=== PATIENT | male | born 1955 | race Caucasian/White ===

== ENCOUNTER 2017-11-13 09:27 | Inpatient (IN) | payer MEDICARE ==
[2017-11-13] MEDS ORDERED: CEFTRIAXONE SODIUM 1 GM in 0.9 % SODIUM CHLORIDE 100ML 100 ML IVPB ONE (09:33)
[2017-11-13] MEDS ORDERED: AZITHROMYCIN 500 MG TABLET PO ONE (09:33)
[2017-11-13] MEDS ORDERED: METHYLPREDNISOLONE PF 125MG/VIAL IVP ONE (09:33)
[2017-11-13] MEDS ORDERED: IPRATROPIUM/ALBUTEROL (0.5MG/3MG) NEB INH ONE (09:33)
--- NOTE | 2017-11-13 09:37 | Emergency Department Record ---
History of Present Illness - General Chief Complaint: Shortness of breath Stated Complaint: BECCA Time Seen by Provider: 11/13/17 09:32 Source: Patient, Family Mode of Arrival: Ambulatory Limitations: No limitations - History of Present Illness Initial Comments: 62 yo male present with cough, fevers, and productive sputum. The onset was last Sunday. The symptoms started with a dry cough. Over the course of the days he has developed a productive cough with sputum that is like "banana pudding". No blood. He is a lifelong smoker. He denies chest pain or leg swelling. No history of CAD. He states Dr Goodrich is his PCP and treats him for HTN. On presentation he was 87-89% on room air. He was in the low 90's on 2 LNC. MD Complaint: Cough, Shortness of breath -: Week(s) (1) Severity: Mild Quality: Aching Consistency: Constant Improves With: Nothing Worsens With: Coughing Known History Of: COPD Context: Recent URI Associated Symptoms: Denies other symptoms, Cough - Related Data Home Medications Medication Instructions Recorded Confirmed Last Taken Amlodipine Besylate [Norvasc] 10 mg PO DAILY 11/13/17 11/13/17 Unknown Aspirin Chewable 81 mg PO DAILY 11/13/17 11/13/17 Unknown Atorvastatin Calcium 20 mg PO QHS 11/13/17 11/13/17 Unknown Carvedilol [Coreg] 3.125 mg PO BID 11/13/17 11/13/17 Unknown Glyburide 5 mg PO DAILY 11/13/17 11/13/17 Unknown Hydrochlorothiazide [Hctz] 25 mg PO BID 11/13/17 11/13/17 Unknown Insulin Glargine,Hum.rec.anlog 70 unit SQ DAILY 11/13/17 11/13/17 Unknown [Lantus] Lisinopril 20 mg PO BID 11/13/17 11/13/17 Unknown Metformin HCl 1,000 mg PO BID 11/13/17 11/13/17 Unknown Pioglitazone HCl 30 mg PO DAILY 11/13/17 11/13/17 Unknown Allergies Allergy/AdvReac Type Severity Reaction Status Date / Time No Known Drug Allergies Allergy Verified 11/13/17 09:33 Review of Systems Constitutional: Reports: Chills, Fever, Malaise Eyes: Denies: Eye discharge, Eye pain, Photophobia, Vision change ENT: Reports: Congestion. Denies: Dental pain, Throat pain Respiratory: Reports: Cough, Dyspnea, Wheezes Cardiovascular: Denies: Chest pain, Palpitations, Syncope Endocrine: Denies: Fatigue, Polydipsia, Polyuria Gastrointestinal: Denies: Abdominal pain, Diarrhea, Nausea, Vomiting Genitourinary: Denies: Dysuria, Frequency, Hematuria Musculoskeletal: Denies: Arthralgia, Back pain, Joint swelling, Myalgia, Neck pain Skin: Denies: Change in color Neurological: Denies: Numbness, Weakness Psychiatric: Denies: Anxiety Hematological/Lymphatic: Denies: Blood Clots, Easy bleeding, Easy bruising, Swollen glands Physical Exam - General General Appearance: Alert, Oriented x3, Cooperative, No acute distress Limitations: No limitations - Head Head exam: Normal inspection - Eye Eye exam: Normal appearance. negative: Conjunctival injection, Scleral icterus - ENT ENT exam: Normal exam, Mucous membranes moist Ear exam: Normal external inspection Nasal Exam: Normal inspection Mouth exam: Normal external inspection Teeth exam: Normal inspection Throat exam: Normal inspection. negative: Tonsillar erythema, Tonsillomegaly, Tonsillar exudate, R peritonsillar mass, L peritonsillar mass - Neck Neck exam: Normal inspection, Full ROM. negative: Lymphadenopathy, Tenderness - Respiratory Respiratory exam: Accessory muscle use, Decreased breath sounds, Prolonged expiratory, Rhonchi, Wheezes. negative: Normal lung sounds bilaterally, Respiratory distress - Cardiovascular Cardiovascular Exam: Regular rate, Normal rhythm, Normal heart sounds - GI/Abdominal GI/Abdominal exam: Soft. negative: Distended, Guarding, Rebound, Rigid, Tenderness - Rectal Rectal exam: Deferred - exam: Deferred - Extremities Extremities exam: Normal inspection, Full ROM, Normal capillary refill. negative: Pedal edema, Tenderness - Back Back exam: Reports: Normal inspection, Full ROM. Denies: CVA tenderness (R), CVA tenderness (L), Muscle spasm, Paraspinal tenderness, Rash noted, Tenderness , Vertebral tenderness - Neurological Neurological exam: Alert, Normal gait, Oriented X3 - Psychiatric Psychiatric exam: Normal affect, Normal mood - Skin Skin exam: Dry, Intact, Normal color, Warm Course - Reevaluation(s) Reevaluation #1: ekg sinus rate 99, intervals QTc 482, L axis, ST No acute changes. No old EKG. 11/13/17 09:54 11/13/17 10:45 The patient was recheck after the treatment He still has diffuse wheeze, rhonchi, on 2 LNC 92-93% with Hr 103 11/13/17 10:46 The CBC was reviewed. No acute changes The CMP without significant acute changes The Influenza were negative The Troponin was normal The BNP was 245 The CXR was read as COPD, bilateral patchy infiltrates consistent with pneumonitis 11/13/17 11:01 I discussed the case with Dr Worley of He will admit for COPD/Pneumonitis Medical Decision Making - Lab Data Result diagrams: 11/13/17 09:40 11/13/17 09:40 Disposition Disposition: Admit Clinical Impression: COPD exacerbation Dyspnea Qualifiers: Dyspnea type: dyspnea on exertion Qualified Code(s): R06.09 - Other forms of dyspnea Pneumonia Qualifiers: Pneumonia type: due to unspecified organism Laterality: bilateral Lung location : unspecified part of lung Qualified Code(s): J18.9 - Pneumonia, unspecified organism Disposition: Still a Patient at [facility] Decision to Admit: Admit from ER Decision to Admit Date: 11/13/17 Decision to Admit Time: 10:47 Condition: (1) Good Forms: Patient Portal Access Time of Disposition: 10:47 Quality - Quality Measures Quality Measures: N/A - Blood Pressure Screening Does Patient Have Any of the Following: Active Dx of HTN Blood Pressure Classification: Hypertensive Reading Systolic Measurement: 184 Diastolic Measurement: 103 Screening for High Blood Pressure: Patient Exclusion, Hx of HTN [[id number]]
[2017-11-13 09:51] LABS: BASO % 0.1 % (0-6); EOS % 1.2 % (0-6); GRAN % 76.9 % (47-80); HEMATOCRIT 43.2 % (42.0-52.0); LYMPH % 11.5 % (16-45); MEAN CELL VOLUME 89.3 fl (81-97); MEAN CORPUSCULAR HGB CONC 34.7 g/dl (32-36); MONO % 10.3 % (0-9); PLATELET COUNT 312 K/uL (130-400); RED BLOOD COUNT 4.84 M/uL (4.40-5.70); RED CELL DISTRIBUTION WIDTH 12.8 % (11.5-14.5)
[2017-11-13 10:21] LABS: INFLUENZA A NEGATIVE (NEGATIVE); INFLUENZA B NEGATIVE (NEGATIVE)
[2017-11-13 10:21] LABS: BLOOD UREA NITROGEN 13 mg/dL (8-23); CREATININE 0.9 mg/dL (0.7-1.2); EST GLOMERULAR FILTRATION RATE > 60 mL/min
[2017-11-13 10:24] LABS: GLUCOSE,RANDOM 281 mg/dL (74-109)
[2017-11-13 10:27] LABS: ALBUMIN 3.5 g/dL (4.0-5.0); ALKALINE PHOSPHATASE 83 U/L (40-129); ALT/SGPT 23 U/L (<41); AST/SGOT 18 U/L (10.0-50.0)
[2017-11-13] MEDS ORDERED: ALBUTEROL HFA 8 GM INHALER INH PRN (11:26)
[2017-11-13] MEDS ORDERED: NICOTINE 21 MG/24 HOUR PATCH TD SCH (11:30)
--- NOTE | 2017-11-13 11:43 | History & Physical ---
History of Present Illness - Date of Service Date of Service for History & Physical: 11/13/17 - History of Present Illness Admitting Diagnosis: Pneumonia; COPD exacerbation History of Present Illness: 62 year old male admitted for pneumonia, COPD exacerbation. Past medical history includes COPD, hyperlipidemia, hypertension, and insulin dependent diabetes mellitus. Patient is a current pack per day smoker, denies any alcohol use. Patient developed a cough, fever, and shortness of breath 1 week ago. The symptoms started with a dry cough and progressed to a productive cough today. Patient describes the sputum as "banana pudding" and denies blood. He is a lifelong smoker. He denies chest pain or leg swelling. Patient denies any home treatments tried and denies any current treatment for his COPD. Upon arrival to the ED, he was 87-89% on room air. He was in the low 90's on 2 LNC, and afebrile. An EKG was obtained which indicated sinus rhythm with no ST changes. Chest x-ray revealed bilateral patchy infiltrates and COPD. Initial WBC was within normal limits. Patient received a duoneb treatment, solumedrol loading dose, rocephin, and azithromycin. Influenza testing was negative. 11/13/17: Patient alert and oriented x 3. Remains short of breath with minimal exertion on 2L oxygen via NC. Patient denies chest pain at this time. Tachycardic with heartrate in the 100's at rest. Patient reports mild improvement in dyspnea after receiving Duoneb treatment. Continues to have productive cough of purulent, yellow sputum. Travel Screening - Travel/Exposure Within Last 30 Days Have you traveled within the last 30 days?: No Review of Systems Constitutional: Reports: Chills, Fever, Malaise Eyes: Denies: Eye discharge, Eye pain, Photophobia, Vision change ENT: Reports: Congestion. Denies: Dental pain, Throat pain Respiratory: Reports: Cough, Dyspnea, Wheezes Cardiovascular: Denies: Chest pain, Palpitations, Syncope Endocrine: Denies: Fatigue, Polydipsia, Polyuria Gastrointestinal: Denies: Abdominal pain, Diarrhea, Nausea, Vomiting Genitourinary: Denies: Dysuria, Frequency, Hematuria Musculoskeletal: Denies: Arthralgia, Back pain, Joint swelling, Myalgia, Neck pain Skin: Denies: Change in color Neurological: Denies: Numbness, Weakness Psychiatric: Denies: Anxiety Hematological/Lymphatic: Denies: Blood Clots, Easy bleeding, Easy bruising, Swollen glands Past Medical History - SOCIAL HISTORY Smoking Status: Current every day smoker Alcohol Use: None Drug Use: None - RESPIRATORY Hx Respiratory Disorders: Yes Hx COPD: Yes - CARDIOVASCULAR Hx Cardio Disorders: Yes Hx CHF: Yes Hx Hypertension: Yes - NEURO Hx Neuro Disorders: Yes Hx TIA: Yes - GI Hx GI Disorders: No - Hx Genitourinary Disorders: No - ENDOCRINE Hx Endocrine Disorders: Yes Hx Diabetes: Yes - MUSCULOSKELETAL Hx Musculoskeletal Disorders: No - PSYCH Hx Psych Problems: No - HEMATOLOGY/ONCOLOGY Hx Hematology/Oncology Disorders: No Family Medical History Any Significant Family History?: No H&P Meds/Allergies - Allergies Allergies: Allergies Allergy/AdvReac Type Severity Reaction Status Date / Time No Known Drug Allergies Allergy Verified 11/13/17 09:33 - Home Medications Home Medications Medication Instructions Recorded Confirmed Last Taken Amlodipine Besylate [Norvasc] 10 mg PO DAILY 11/13/17 11/13/17 Unknown Aspirin Chewable 81 mg PO DAILY 11/13/17 11/13/17 Unknown Atorvastatin Calcium 20 mg PO QHS 11/13/17 11/13/17 Unknown Carvedilol [Coreg] 3.125 mg PO BID 11/13/17 11/13/17 Unknown Glyburide 5 mg PO DAILY 11/13/17 11/13/17 Unknown Hydrochlorothiazide [Hctz] 25 mg PO BID 11/13/17 11/13/17 Unknown Insulin Glargine,Hum.rec.anlog 70 unit SQ DAILY 11/13/17 11/13/17 Unknown [Lantus] Lisinopril 20 mg PO BID 11/13/17 11/13/17 Unknown Metformin HCl 1,000 mg PO BID 11/13/17 11/13/17 Unknown Pioglitazone HCl 30 mg PO DAILY 11/13/17 11/13/17 Unknown - Active Medications Active Medications: Current Medications Albuterol Sulfate (Ventolin Hfa) 1 puff INH RESP.Q4H PRN PRN Reason: Wheezing Albuterol/Ipratropium (Duoneb) 3 ml INH RESP.Q6H WILL Azithromycin (Zithromax) 500 mg PO DAILY WILL Ceftriaxone Sodium 1 gm/ (Sodium Chloride) 100 mls @ 200 mls/hr IVPB Q24H WILL Stop: 11/18/17 11:31 Insulin Detemir (Levemir Flextouch) 30 unit SQ QHS [facility] Nicotine (Nicotine 21mg) 1 patch TD DAILY [facility] Pantoprazole Sodium (Protonix) 40 mg PO DAILYAC [facility] Physical Exam - Vital Signs Vital Signs: Vital Signs - Last 24 Hrs Temp Pulse Pulse Resp BP BP Pulse Ox 11/13/17 10:27 98 H 22 169/88 93 L 11/13/17 09:38 99 H 21 93 L 11/13/17 09:30 98.0 F 102 H 22 184/103 91 L - General General Appearance: Alert, Oriented x3, Cooperative, No acute distress Limitations: No limitations - Head Head exam: Normal inspection - Eye Eye exam: Normal appearance. negative: Conjunctival injection, Scleral icterus - ENT ENT exam: Normal exam, Mucous membranes moist Ear exam: Normal external inspection Nasal Exam: Normal inspection Mouth exam: Normal external inspection Teeth exam: Normal inspection Throat exam: Normal inspection. negative: Tonsillar erythema, Tonsillomegaly, Tonsillar exudate, R peritonsillar mass, L peritonsillar mass - Neck Neck exam: Normal inspection, Full ROM. negative: Lymphadenopathy, Tenderness - Respiratory Respiratory exam: Accessory muscle use, Decreased breath sounds, Prolonged expiratory, Rhonchi (bilateral), Wheezes. negative: Normal lung sounds bilaterally, Respiratory distress - Cardiovascular Cardiovascular Exam: Regular rate, Normal rhythm, Normal heart sounds - GI/Abdominal GI/Abdominal exam: Soft. negative: Distended, Guarding, Rebound, Rigid, Tenderness - Rectal Rectal exam: Deferred - exam: Deferred - Extremities Extremities exam: Normal inspection, Full ROM. negative: Pedal edema, Tenderness - Back Back exam: Reports: Normal inspection, Full ROM. Denies: CVA tenderness (R), CVA tenderness (L), Muscle spasm, Paraspinal tenderness, Rash noted, Tenderness , Vertebral tenderness - Neurological Neurological exam: Alert, Normal gait, Oriented X3 - Psychiatric Psychiatric exam: Normal affect, Normal mood - Skin Skin exam: Dry, Intact, Normal color, Warm Results - Labs Result Diagrams: 11/13/17 09:40 11/13/17 09:40 Labs Last 24 Hours: Laboratory Results - last 24 hr 11/13/17 11/13/17 11/13/17 09:40 09:40 10:01 WBC 8.0 RBC 4.84 Hgb 15.0 Hct 43.2 MCV 89.3 MCH 31.0 MCHC 34.7 RDW 12.8 Plt Count 312 MPV 10.0 Gran % 76.9 Lymphocytes % 11.5 L Monocytes % 10.3 H Eosinophils % 1.2 Basophils % 0.1 Sodium 133 L Potassium 3.4 Chloride 90 L Carbon Dioxide 28.0 Anion Gap 15.0 BUN 13 Creatinine 0.9 Estimated GFR > 60 Random Glucose 281 H Calcium 9.1 Total Bilirubin 0.60 AST 18 ALT 23 Alkaline Phosphatase 83 Troponin T < 0.010 NT-Pro-B Natriuret Pep 242.50 H Total Protein 7.0 Albumin 3.5 L Globulin 3.5 Albumin/Globulin Ratio 1.0 L Influenza Type A Ag Negative Influenza Type B Ag Negative VTE H&P Assessment - Risk for VTE Risk for VTE: Yes Risk Level: Moderate Risk Assessment Date: 11/13/17 Risk Assessment Time: 10:45 VTE Orders Placed or Will Be Placed: Yes Plan - Inpatient Certification Inpatient Certification: 11/13/17 12:23 Admit to inpatient care: Based on my medical assessment, after consideration of patient's risk factors (age, co-morbidities and patient presenting symptoms and acuity), I expect that this patient will remain in the hospital greater than or equal to two midnights and that the services needed warrant inpatient care because: Patient Risk Factors: [COPD, Pneumonia, DM] Estimated length of stay: [48-72 hrs] The patient may reasonably be expected to be discharged or transferred to a hospital within 96 hours after admission to [facility]. Post hospital care (if known): [repeat chest x-ray, follow-up with PCP] I certify that my determination is in accordance with my understanding of Medicare requirements for reasonable and necessary inpatient services. - Detailed Diagnosis and Plan (1) Dyspnea Current Visit: Yes Status: Acute Qualifiers: Dyspnea type: dyspnea on exertion Qualified Code(s): R06.09 - Other forms of dyspnea Base Code: R06.00 - DYSPNEA, UNSPECIFIED Comment: 11/13/17: Patient remains short of breath with minimal exertion. Pulse ox 90-93% on 2L oxygen via NC. - Will continue duoneb and albuterol treatments - Solumedrol 60mg IVP qd - Continue to monitor and attempt weaning down oxygen as tolerated (2) Pneumonia Current Visit: Yes Status: Acute Qualifiers: Pneumonia type: due to unspecified organism Laterality: bilateral Lung location: unspecified part of lung Qualified Code(s): J18.9 - Pneumonia, unspecified organism Base Code: J18.9 - PNEUMONIA, UNSPECIFIED ORGANISM Comment: 11/13/17: Chest x- ray obtained indicates bilateral patchy infiltrates. Patient reports being febrile several times over the past week, rhonchi heard bilaterally on auscultation, decreased room air pulse ox. - Continue Rocephine 1gm IV qd - Continue Azithromycin 500mg PO qd - Continue albuterol and duoneb treatments - Continue solumedrol 60mg IVP qd (3) COPD exacerbation Current Visit: Yes Status: Acute Base Code: J44.1 - CHRONIC OBSTRUCTIVE PULMONARY DISEASE W (ACUTE) EXACERBATION Comment: 11/13/17: Patient is a lifelong 1 ppd smoker. Decreased room air pulse ox of 85-87%. Patient reports of dyspnea and cough. - Continue oxygen therapy per NC as needed to keep oxygen saturation above 92% - Continue albuterol and duoneb treatments (4) Nicotine dependence Current Visit: Yes Status: Acute Base Code: F17.200 - NICOTINE DEPENDENCE, UNSPECIFIED, UNCOMPLICATED Comment: 11/13/17: Patient is a current lifelong 1ppd smoker - Nicotine patch ordered (5) Diabetes Current Visit: Yes Status: Acute Base Code: E11.9 - TYPE 2 DIABETES MELLITUS WITHOUT COMPLICATIONS Comment: 11/13/17: Patient states he is an insulin dependent diabetic which is managed by Dr. Goodrich. Patient reports elevated home glucose readings over the past week - HgA1C ordered - Continue accuchecks AC, HS - Sliding scale insulin coverage ordered - Continue home dosing of Lantus (6) VTE (venous thromboembolism) Current Visit: Yes Status: Acute Base Code: I82.90 - ACUTE EMBOLISM AND THROMBOSIS OF UNSPECIFIED VEIN Comment: 11/13/17: Patient has moderate VTE risk due to age, pneumonia, and COPD. - Will order Lovenox 40mg SQ daily (7) Full code status Current Visit: Yes Status: Acute Base Code: Z78.9 - OTHER SPECIFIED HEALTH STATUS Comment: 11/13/17: Patient is a full code this admission
[2017-11-13] MEDS ORDERED: ALBUTEROL SULFATE (0.083%) 2.5 MG/3 ML NEB INH ONE (11:54)
[2017-11-13] MEDS: IPRATROPIUM/ALBUTEROL (0.5MG/3MG) NEB INH SCH ×5 (12:00→21:05)
[2017-11-13] MEDS ORDERED: PATIENT OWN MED: MC SCH (12:00)
[2017-11-13] MEDS ORDERED: ALBUTEROL SULFATE (0.083%) 2.5 MG/3 ML NEB INH PRN ×2 (13:28→16:57)
[2017-11-13] MEDS ORDERED: CEFTRIAXONE SODIUM 1 GM in 0.9 % SODIUM CHLORIDE 100ML 100 ML IVPB SCH (16:57)
[2017-11-13] MEDS ORDERED: ACETAMINOPHEN 325 MG TAB PO PRN (16:57)
[2017-11-13] MEDS ORDERED: IPRATROPIUM/ALBUTEROL (0.5MG/3MG) NEB INH SCH (17:00)
[2017-11-13] MEDS: NOVOLOG FLEXPEN (INSULIN ASPART) 100 UNITS/ML SQ SCH ×3 (17:48→21:05)
[2017-11-13] MEDS: HYDROCHLOROTHIAZIDE 25 MG TABLET PO SCH (21:50)
[2017-11-13] MEDS: METFORMIN 500 MG TABLET PO SCH (21:51)
[2017-11-13] MEDS: LISINOPRIL 20 MG TABLET PO SCH (21:51)
[2017-11-13] MEDS: CARVEDILOL 3.125 MG TABLET PO SCH (21:51)
[2017-11-13] MEDS ORDERED: SODIUM CHLORIDE 0.9% 500 ML IV ONE (21:59)
[2017-11-13] MEDS ORDERED: Non-Formulary MISC (Metformin Hcl [Metformin Hcl] 1,000 MG) PO SCH (22:00)
[2017-11-13] MEDS ORDERED: LISINOPRIL 20 MG TABLET PO SCH (22:00)
[2017-11-13] MEDS ORDERED: CARVEDILOL 3.125 MG TABLET PO SCH (22:00)
[2017-11-13] MEDS ORDERED: ATORVASTATIN 20 MG TABLET PO SCH ×2 (22:00)
[2017-11-13] MEDS ORDERED: LEVEMIR FLEXTOUCH 100 UNIT/ML INSULIN PEN SQ SCH (22:00)
[2017-11-13] MEDS ORDERED: PIOGLITAZONE HCL 15 MG TABLET PO SCH (22:00)
[2017-11-14] MEDS: IPRATROPIUM/ALBUTEROL (0.5MG/3MG) NEB INH SCH ×2 (01:15→06:09)
[2017-11-14 06:47] LABS: GRAN % 79.5 % (47-80); HEMATOCRIT 40.8 % (42.0-52.0); HEMOGLOBIN 14.2 gm/dl (14.0-18.0); LYMPH % 10.6 % (16-45); MEAN CELL VOLUME 88.9 fl (81-97); MEAN CORPUSCULAR HEMOGLOBIN 30.9 pg (27-33); MEAN CORPUSCULAR HGB CONC 34.8 g/dl (32-36); MEAN PLATELET VOLUME 10.2 fl (7.4-10.4); MONO % 9.9 % (0-9); PLATELET COUNT 394 K/uL (130-400); RED BLOOD COUNT 4.59 M/uL (4.40-5.70); RED CELL DISTRIBUTION WIDTH 12.6 % (11.5-14.5); WHITE BLOOD COUNT W/O DIFF 10.3 K/uL (4.2-12.2)
[2017-11-14 06:56] LABS: BLOOD UREA NITROGEN 19 mg/dL (8-23); EST GLOMERULAR FILTRATION RATE > 60 mL/min; GLUCOSE,RANDOM 320 mg/dL (74-109)
[2017-11-14] MEDS ORDERED: GLIPIZIDE 5 MG TABLET PO SCH ×2 (07:00→10:00)
[2017-11-14] MEDS ORDERED: PANTOPRAZOLE SODIUM 40 MG TABLET PO SCH (07:00)
--- NOTE | 2017-11-14 07:24 | RADIOLOGY REPORT ---
EXAM: CHEST, TWO VIEWS HISTORY: CHEST PAIN. TECHNIQUE: Frontal and lateral views of the chest were obtained. Comparison: None. FINDINGS: The heart size is normal. Atheromatous change of the thoracic aorta. Osteopenia. COPD. Mixed interstitial interspace opacities bilaterally. Multiple old rib fractures on the left. No pneumothorax. IMPRESSION: COPD WITH MIXED INTERSTITIAL INTERSPACE OPACITIES BILATERALLY SUGGESTING PNEUMONITIS. FOLLOW-UP RECOMMENDED. JOB NUMBER: [id number] MTDD
[2017-11-14] MEDS: NOVOLOG FLEXPEN (INSULIN ASPART) 100 UNITS/ML SQ SCH ×2 (08:10→12:25)
[2017-11-14] MEDS ORDERED: ALBUTEROL HFA 8 GM INHALER INH PRN (09:23)
[2017-11-14] MEDS ORDERED: CEFDINIR 300 MG CAPSULE PO ONE (09:30)
[2017-11-14] MEDS ORDERED: PREDNISONE 20 MG TAB PO SCH (09:30)
--- NOTE | 2017-11-14 09:30 | Discharge Summary ---
Providers Discharge Summary Date: 11/14/17 Date of admission: 11/13/17 12:09 Attending physician: SLOANE NELSON Primary care physician: JOE GOODRICH M.D. Physical Exam - Vital Signs Vital Signs: Vital Signs - Last 24 Hrs Temp Pulse Pulse Resp BP BP BP 11/14/17 09:13 99.3 F 92 H 18 135/82 11/14/17 07:35 98.0 F 91 H 18 149/83 11/14/17 07:30 18 11/14/17 06:09 98 H 16 11/14/17 01:15 96 H 16 11/14/17 01:00 97.6 F 93 H 18 156/92 11/13/17 21:53 99.0 F 104 H 16 135/76 11/13/17 21:05 103 H 16 11/13/17 21:00 104 H 16 11/13/17 16:33 104 H 14 11/13/17 15:42 105 H 20 11/13/17 12:27 101 H 20 164/89 11/13/17 12:00 100 H 15 11/13/17 10:27 98 H 22 169/88 11/13/17 09:38 99 H 21 11/13/17 09:30 98.0 F 102 H 22 184/103 Pulse Ox 11/14/17 09:13 94 L 11/14/17 07:35 91 L 11/14/17 07:30 11/14/17 06:09 11/14/17 01:15 93 L 11/14/17 01:00 94 L 11/13/17 21:53 90 L 11/13/17 21:05 92 L 11/13/17 21:00 11/13/17 16:33 96 11/13/17 15:42 11/13/17 12:27 92 L 11/13/17 12:00 92 L 11/13/17 10:27 93 L 11/13/17 09:38 93 L 11/13/17 09:30 91 L - General General Appearance: Alert, Oriented x3, Cooperative, No acute distress Limitations: No limitations - Head Head exam: Normal inspection - Eye Eye exam: Normal appearance. negative: Conjunctival injection, Scleral icterus - ENT ENT exam: Normal exam, Mucous membranes moist Ear exam: Normal external inspection Nasal Exam: Normal inspection Mouth exam: Normal external inspection Teeth exam: Normal inspection Throat exam: Normal inspection. negative: Tonsillar erythema, Tonsillomegaly, Tonsillar exudate, R peritonsillar mass, L peritonsillar mass - Neck Neck exam: Normal inspection, Full ROM. negative: Lymphadenopathy, Tenderness - Respiratory Respiratory exam: Decreased breath sounds, Prolonged expiratory, Rhonchi ( bilateral). negative: Normal lung sounds bilaterally, Accessory muscle use, Respiratory distress, Wheezes - Cardiovascular Cardiovascular Exam: Regular rate, Normal rhythm, Normal heart sounds - GI/Abdominal GI/Abdominal exam: Soft. negative: Distended, Guarding, Rebound, Rigid, Tenderness - Rectal Rectal exam: Deferred - exam: Deferred - Extremities Extremities exam: Normal inspection, Full ROM. negative: Pedal edema, Tenderness - Back Back exam: Reports: Normal inspection, Full ROM. Denies: CVA tenderness (R), CVA tenderness (L), Muscle spasm, Paraspinal tenderness, Rash noted, Tenderness , Vertebral tenderness - Neurological Neurological exam: Alert, Normal gait, Oriented X3 - Psychiatric Psychiatric exam: Normal affect, Normal mood - Skin Skin exam: Dry, Intact, Normal color, Warm Hospitalization - Hospitalization Admission Diagnosis: copd, pneumonia - Problem List/Discharge Diagnosis (1) Dyspnea Current Visit: Yes Status: Acute Discharge Diagnosis: Dyspnea type: dyspnea on exertion Qualified Code(s): R06.09 - Other forms of dyspnea Base Code: R06.00 - DYSPNEA, UNSPECIFIED Comment: 11/14/17: Patient denies shortness of breath at rest or with minimal exertion. Room air pulse ox 90-93%. - Patient to start albuterol and breo inhaler use - Prednisone 40mg qd PO (2) Pneumonia Current Visit: Yes Status: Acute Discharge Diagnosis: Pneumonia type: due to unspecified organism Laterality: bilateral Lung location: unspecified part of lung Qualified Code(s): J18.9 - Pneumonia, unspecified organism Base Code: J18.9 - PNEUMONIA, UNSPECIFIED ORGANISM Comment: 11/14/17: Chest x- ray obtained indicates bilateral patchy infiltrates. Patient reports decreased work of breathing, overall feelings of malaise have improved. Continues to have rhonchi in bases bilaterally. - Continue Azithromycin 500mg PO qd - Start Ceftinir 300mg PO BID - Will order outpatient chest x-ray after discharge in 1 week (3) COPD exacerbation Current Visit: Yes Status: Acute Base Code: J44.1 - CHRONIC OBSTRUCTIVE PULMONARY DISEASE W (ACUTE) EXACERBATION Comment: 11/14/17: Patient is a lifelong 1 ppd smoker. Room air pulse ox today 93%. Patient reports continued dry cough. - Albuterol and Breo inhalers ordered for home use - Will consider ordering PFTs after discharge (4) Nicotine dependence Current Visit: Yes Status: Acute Base Code: F17.200 - NICOTINE DEPENDENCE, UNSPECIFIED, UNCOMPLICATED Comment: 11/14/17: Patient is a current lifelong 1ppd smoker - Nicotine patch ordered - Discussed need for patient to stop smoking upon discharge (5) Diabetes Current Visit: Yes Status: Acute Base Code: E11.9 - TYPE 2 DIABETES MELLITUS WITHOUT COMPLICATIONS Comment: 11/14/17: Patient states he is an insulin dependent diabetic which is managed by Dr. Goodrich. - HgA1C 7.3 - Continue accuchecks AC, HS - Sliding scale insulin coverage ordered - Continue home dosing of Lantus - Discussed with patient increasing HS dose of Lantus to 35 units while taking prednisone. (6) VTE (venous thromboembolism) Current Visit: Yes Status: Acute Base Code: I82.90 - ACUTE EMBOLISM AND THROMBOSIS OF UNSPECIFIED VEIN Comment: 11/14/17: Patient has moderate VTE risk due to age, pneumonia, and COPD. - Will order Lovenox 40mg SQ daily (7) Full code status Current Visit: Yes Status: Acute Base Code: Z78.9 - OTHER SPECIFIED HEALTH STATUS Comment: 11/14/17: Patient is a full code this admission - Hospitalization Course Procedures: Imaging and X-Rays 11/13/17 09:33 CHEST 2 VIEWS [RAD] Stat Cardiology Procedures 11/13/17 09:33 Hog Raiser NOW EKG NOW 11/13/17 16:57 Hog Raiser .Continuous Abnormal Labs: Abnormal Lab Results 11/13/17 11/13/17 11/13/17 Range/Units 09:40 09:40 11:26 Hct (42.0-52.0) % Lymphocytes % 11.5 L (16-45) % Monocytes % 10.3 H (0-9) % Sodium 133 L (136-145) mmol/L Chloride 90 L (98-107) mmol/L Anion Gap (7-16) POC Glucose (70-110) mg/dL Random Glucose 281 H (74-109) mg/dL Hemoglobin A1c 7.30 H (4.0-6.00) % NT-Pro-B Natriuret Pep 242.50 H (<125) pg/mL Albumin 3.5 L (4.0-5.0) g/dL Albumin/Globulin Ratio 1.0 L (1.1-1.8) 11/13/17 11/13/17 11/13/17 Range/Units 18:02 20:30 20:38 Hct (42.0-52.0) % Lymphocytes % (16-45) % Monocytes % (0-9) % Sodium (136-145) mmol/L Chloride (98-107) mmol/L Anion Gap (7-16) POC Glucose 377 H 471 H* (70-110) mg/dL Random Glucose 504 H* (74-109) mg/dL Hemoglobin A1c (4.0-6.00) % NT-Pro-B Natriuret Pep (<125) pg/mL Albumin (4.0-5.0) g/dL Albumin/Globulin Ratio (1.1-1.8) 11/13/17 11/13/17 11/14/17 Range/Units 22:00 23:08 01:21 Hct (42.0-52.0) % Lymphocytes % (16-45) % Monocytes % (0-9) % Sodium (136-145) mmol/L Chloride (98-107) mmol/L Anion Gap (7-16) POC Glucose 464 H* 409 H 316 H (70-110) mg/dL Random Glucose (74-109) mg/dL Hemoglobin A1c (4.0-6.00) % NT-Pro-B Natriuret Pep (<125) pg/mL Albumin (4.0-5.0) g/dL Albumin/Globulin Ratio (1.1-1.8) 11/14/17 11/14/17 11/14/17 Range/Units 01:21 06:16 06:16 Hct 40.8 L (42.0-52.0) % Lymphocytes % 10.6 L (16-45) % Monocytes % 9.9 H (0-9) % Sodium 135 L (136-145) mmol/L Chloride 93 L (98-107) mmol/L Anion Gap 17.0 H (7-16) POC Glucose 316 H (70-110) mg/dL Random Glucose 320 H (74-109) mg/dL Hemoglobin A1c (4.0-6.00) % NT-Pro-B Natriuret Pep (<125) pg/mL Albumin (4.0-5.0) g/dL Albumin/Globulin Ratio (1.1-1.8) 11/14/17 Range/Units 06:16 Hct (42.0-52.0) % Lymphocytes % (16-45) % Monocytes % (0-9) % Sodium (136-145) mmol/L Chloride (98-107) mmol/L Anion Gap (7-16) POC Glucose (70-110) mg/dL Random Glucose (74-109) mg/dL Hemoglobin A1c 7.60 H (4.0-6.00) % NT-Pro-B Natriuret Pep (<125) pg/mL Albumin (4.0-5.0) g/dL Albumin/Globulin Ratio (1.1-1.8) Condition at Discharge: (1) Good VTE Discharge VTE Reason For No Overlap Therapy: Not Indicated Discharge Medications - Discharge Medications Prescriptions: Azithromycin [Zithromax] 500 mg PO DAILY #3 tab Cefdinir 300 mg PO BID #6 capsule Prednisone [Prednisone 20Mg] 40 mg PO DAILYWM #3 tab Home Medications: Ambulatory Orders Amlodipine Besylate [Norvasc] 10 mg PO DAILY 11/13/17 [Last Taken Unknown] Aspirin [Aspirin EC] 325 mg PO DAILY 11/13/17 [Last Taken Unknown] Atorvastatin Calcium 20 mg PO QHS 11/13/17 [Last Taken Unknown] Carvedilol [Coreg] 3.125 mg PO BID 11/13/17 [Last Taken Unknown] Glyburide 5 mg PO DAILY 11/13/17 [Last Taken Unknown] Hydrochlorothiazide [Hctz] 50 mg PO DAILY 11/13/17 [Last Taken Unknown] Insulin Glargine,Hum.rec.anlog [Lantus] 30 unit SQ QHS 11/13/17 [Last Taken Unknown] Lisinopril 20 mg PO BID 11/13/17 [Last Taken Unknown] Metformin HCl 1,000 mg PO BID 11/13/17 [Last Taken Unknown] Pioglitazone HCl 30 mg PO QHS 11/13/17 [Last Taken Unknown] Albuterol Sulfate [Ventolin Hfa] 1 puff INH RESP.Q4H PRN #0 inhaler 11/14/17 [ Last Taken Unknown] Aspirin Chewable 81 mg PO DAILY tab.chew 11/14/17 [Last Taken Unknown] Azithromycin [Zithromax] 500 mg PO DAILY #3 tab 11/14/17 [Last Taken Unknown] Cefdinir 300 mg PO BID #6 capsule 11/14/17 [Last Taken Unknown] Fluticasone/Vilanterol 100/25 [Breo Ellipta 100-25 Mcg INH] 1 puff INH RESP.DAILY #0 inhaler 11/14/17 [Last Taken Unknown] Glipizide [Glucotrol] 10 mg PO DAILY tablet 11/14/17 [Last Taken Unknown] Insulin Detemir [Levemir Flextouch] 30 unit SQ QHS syringe 11/14/17 [Last Taken Unknown] Metformin HCl [Glucophage Ir] 1,000 mg PO BID tablet 11/14/17 [Last Taken Unknown] Prednisone [Prednisone 20Mg] 40 mg PO DAILYWM #3 tab 11/14/17 [Last Taken Unknown] Discharge Plan - Discharge Instructions Activity at Discharge: Increase Activity as Tolerated Diet at Discharge: Diabetic Diet Additional Instructions: Take Prednisone once per day for 3 days. Take Zithromax once per day for 3 days. Take Cefdinir twice per day for 3 days. Use the Breo inhaler once every morning. Use the Albuterol inhaler only as needed for wheezing or shortness of breath. Return in 1 week with Stacia Jo NP in [facility], get chest x-ray prior to appointment. Return to ED for increased shortness of breath, increased work of breathing, fever, or worsening of symptoms. Quality Measures - Quality Measures Quality Measures: Documentation of Current Medications in Medical Record, Screening for High Blood Pressure and F/U Documented - Current Medications Quality Measure: Measure #130: Documentation of Current Medications Documentation of Current Medications: <Current Medications Documented/Reviewed> [[id number]] - Blood Pressure Screening Quality Measure: Screening for High Blood Pressure and Follow-Up Documented Does Patient Have Any of the Following: Active Dx of HTN Blood Pressure Classification: Hypertensive Reading Systolic Measurement: 184 Diastolic Measurement: 103 Screening for High Blood Pressure: Patient Exclusion, Hx of HTN [G9744] - Elder Abuse Suspicion Index EASI Reference Information: Dominique ARIAS, Conrad C, Ayo D, Tonio Huntley.Development and validation of a tool to assist physicians identification of elder abuse: The Elder Abuse Suspicion Index (EASI ). Journal of Elder Abuse and Neglect, 2008; 20 (3): 276-300.
[2017-11-14] MEDS: METFORMIN 500 MG TABLET PO SCH (09:33)
[2017-11-14] MEDS: CARVEDILOL 3.125 MG TABLET PO SCH (09:33)
[2017-11-14] MEDS: HYDROCHLOROTHIAZIDE 25 MG TABLET PO SCH (09:35)
[2017-11-14] MEDS: LISINOPRIL 20 MG TABLET PO SCH (09:35)
[2017-11-14] MEDS ORDERED: CEFTRIAXONE 1GM/50ML BAG 1 GM/50 ML BAG IVPB SCH (10:00)
[2017-11-14] MEDS ORDERED: PIOGLITAZONE HCL 30 MG PO SCH (10:00)
[2017-11-14] MEDS ORDERED: HYDROCHLOROTHIAZIDE 25 MG TABLET PO SCH (10:00)
[2017-11-14] MEDS ORDERED: AZITHROMYCIN 500 MG TABLET PO SCH ×2 (10:00)
[2017-11-14] MEDS ORDERED: ENOXAPARIN 40 MG/0.4 ML SYR SQ SCH (10:00)
[2017-11-14] MEDS ORDERED: AMLODIPINE BESYLATE 5MG TAB PO SCH ×2 (10:00)
[2017-11-14] MEDS ORDERED: BREO (FLUTICASONE/VILANTEROL) 100MCG/25MCG INHALER INH SCH (10:00)
[2017-11-14] MEDS ORDERED: INSULIN GLARGINE HUM REC ANLOG 70 UNIT SQ SCH (10:00)
[2017-11-14] MEDS ORDERED: ASPIRIN 325 MG TAB ENTERIC-COATED PO SCH (10:00)
[2017-11-14] MEDS ORDERED: ASPIRIN 81 MG CHEWABLE TABLET PO SCH (10:00)
[2017-11-14] MEDS ORDERED: METHYLPREDNISOLONE PF 125MG/VIAL IVP SCH ×2 (10:00)
[2017-11-14] MEDS ORDERED: ENOXAPARIN 40 MG/0.4 ML SYR SC SCH (10:00)
== END 2017-11-14 12:54 | disposition home or self-care (01) | DRG 194 ==
LOC: ER 09:27 → MEDSURG 12:09
PROVIDERS: ADMIT Internal Medicine; ATTEND Internal Medicine
DX: R06.02 Shortness of breath (principal); J18.9 Pneumonia, unspecified organism; J44.1 Chronic obstructive pulmonary disease with (acute) exacerbation; I82.90 Acute embolism and thrombosis of unspecified vein; R50.9 Fever, unspecified; R05 Cough; R06.09 Other forms of dyspnea; G45.9 Transient cerebral ischemic attack, unspecified; I10 Essential (primary) hypertension; E11.9 Type 2 diabetes mellitus without complications; Z79.4 Long term (current) use of insulin; F17.210 Nicotine dependence, cigarettes, uncomplicated; I50.9 Heart failure, unspecified; E78.5 Hyperlipidemia, unspecified; Z86.73 Personal history of transient ischemic attack (TIA), and cerebral infarction without residual deficits
CPT/HCPCS: 36416; 71046; 80048; 80053; 82947; 82948; 83036; 83880; 84484; 85025; 87400; 93005; 93010; 94640; 94761; 96365; 96374; 99223; 99239; 99285; J1650; J2930; J7512; J7613